=== PATIENT | female | born 1980 | race Caucasian/White ===

== ENCOUNTER 2016-08-18 13:40 | Emergency (ER) | payer OTHER ==
--- NOTE | 2016-08-18 14:44 | RAD ---
History: Cough. Comparison: None. Technique: 2 views Findings: The soft tissue and bony structures are unremarkable. The heart size is appropriate. No infiltrate, effusion or pneumothorax is observed. The hilar and mediastinal structures are normal. Impression: 1. A negative 2 view chest
[2016-08-18] MEDS ORDERED: ACETAMINOPHEN 325 MG TABLET ONE (16:41)
== END 2016-08-18 17:02 | disposition home or self-care (01) ==
LOC: ED 13:40
DX: J06.9 Acute upper respiratory infection, unspecified (principal)
CPT/HCPCS: 71020; 87804; 99283 ×2; A9270